=== PATIENT | female | born 1950 | race Caucasian/White ===

== ENCOUNTER 2022-12-01 20:49 | Emergency (ER) | payer MEDICARE, BC ==
[~2022-12-01] VITALS: Ht 170.2 cm; Wt 81.6 kg
--- NOTE | 2022-12-01 21:51 | NUR ---
PATIENT SITTING UP AT BEDSIDE WITH FAMILY, INFORMED OF PLAN OF CARE, AWAITING MD EXAM. NO S/S OF ANY DISTRESS NOTED, RLE ACEWRAP INTACT FROM HOME. ASSISTED INTO POSITION OF COMFORT.
--- NOTE | 2022-12-01 22:12 | NUR ---
MD AT BEDSIDE TALKING TO PATIENT AND FAMILY.
[2022-12-01] MEDS ORDERED: ASPIRIN 81 MG TAB.CHEW ONE (22:33)
--- NOTE | 2022-12-01 22:47 | NUR ---
RLE IMMOBILIZER PLACED PER ORDER.
--- NOTE | 2022-12-01 23:24 | NUR ---
ACI GIVEN STATES UNDERSTANDING, AWAITING COPY OF XRAY.
[2022-12-01 23:35] VITALS: BP 125/59
== END 2022-12-01 23:35 | disposition home or self-care (01) ==
LOC: ER 20:49
DX: S72.421A Displaced fracture of lateral condyle of right femur, initial encounter for closed fracture (principal); S83.91XA Sprain of unspecified site of right knee, initial encounter; Z88.0 Allergy status to penicillin; W18.39XA Other fall on same level, initial encounter; Y93.89 Activity, other specified; Y92.89 Other specified places as the place of occurrence of the external cause; Y99.8 Other external cause status
CPT/HCPCS: A4663